=== PATIENT | male | born 1965 | race Caucasian/White ===

== ENCOUNTER 2017-07-19 10:30 | Inpatient (IN) | payer BC ==
--- NOTE | 2017-07-12 15:34 | HP ---
HISTORY AND PHYSICAL: DATE OF ADMISSION/SURGERY: 07/19/17. DATE OF OFFICE VISIT: 07/11/17 SURGEON: Bita Delatorre MD.* (DICTATED BY AFSHAN GARCIA) PROCEDURE: Right total hip arthroplasty. CHIEF COMPLAINT: Right hip pain. HISTORY OF PRESENT ILLNESS: Mr. Triana is a 52-year-old gentleman with complaints of right hip pain. He failed conservative management and elected to proceed with a right total hip arthroplasty, which is scheduled for 07/19/[address] Delatorre. PAST MEDICAL HISTORY: Hypertension. PAST SURGICAL HISTORY: Vasectomy. CURRENT MEDICATIONS: 1. Lisinopril/hydrochlorothiazide 20/12.5 mg every day. 2. Famotidine 40 mg every day. ALLERGIES: No known drug allergies. FAMILY HISTORY: An aortic aneurysm, hypertension, coronary artery disease, and colon cancer. SOCIAL HISTORY: This 52-year-old gentleman lives with his and 3 children. He does not smoke, use drug. Uses occasional alcohol. REVIEW OF SYSTEMS: A complete 14-point review of systems was reviewed with the patient, was all negative and noncontributory. PHYSICAL EXAMINATION GENERAL: He is well developed, well nourished, in no acute distress. VITAL SIGNS: He stands 6 feet 3 inches tall, weighs 285 pounds. Blood pressure 176/80, heart rate 64. HEENT: Normocephalic, atraumatic. NECK: Supple. No palpable lymph nodes. PULMONARY: The lungs are clear to auscultation bilaterally. CARDIO: Regular rate and rhythm. Strong S1, S2. ABDOMEN: Soft, nontender, nondistended. NEUROLOGIC: He is alert and oriented x3. Cranial nerves II through XII are intact. MUSCULOSKELETAL: Right lower extremity skin intact. There is no open wounds or abrasions. She walks with antalgic-type gait favoring his right hip. He has decreased internal and external rotation of the right hip. He has 2+ dorsalis pedis pulses. He has intact sensation. His lower extremity muscle groups strength are intact and 5/5. ASSESSMENT AND PLAN: Mr. Triana is a 52-year-old gentleman with endstage osteoarthritis of the right hip. He failed conservative management and has elected to proceed with right total hip arthroplasty. The surgery is schedule for 07/19/[address] Delatorre discussed the risks and benefits of surgery at today's visit and all of his questions were answered. He will follow with Dr. Delatorre in 2 weeks after the surgery. AFSHAN GARCIA [id number]/[facility] #: [id number] [facility]ALTH SYSTEMIrving
[~2017-07-19 10:30] MED LIST: Acetaminophen IV 1GM/100ML * 1,000 MG/100 ML VIAL IVPB ONE; Buffered Lidocaine 0.9% SYRIN* 5 ML/SYR SYRINGE INTRADERM ONE; Dexamethasone IV* 4 MG/ML 1 ML (4 MG) IV SLOW PU ONE; Famotidine IV* 10 MG/ML 2 ML (20 mg) IV ONE; Gabapentin CAP(*) 300 MG PO ONE; Ondansetron ODT TAB* 4 MG PO ONE; celeCOXIB CAP* 200 MG PO ONE
[2017-07-19] MEDS ORDERED: Famotidine IV* 10 MG/ML 2 ML (20 mg) ONE (10:40)
[2017-07-19] MEDS ORDERED: Dexamethasone IV* 4 MG/ML 1 ML (4 MG) ONE (10:40)
[2017-07-19] MEDS ORDERED: Gabapentin CAP(*) 300 MG ONE (10:41)
[2017-07-19] MEDS ORDERED: celeCOXIB CAP* 100 MG ONE (10:41)
[2017-07-19] MEDS ORDERED: Ondansetron ODT TAB* 4 MG ONE (10:41)
[2017-07-19] MEDS ORDERED: Buffered Lidocaine 0.9% SYRIN* 5 ML/SYR SYRINGE ONE (10:42)
[2017-07-19] MEDS ORDERED: ceFAZolin 2 GM PREMIX (*) 2 GM/50 ML BAG IVPB ONE (10:42)
[2017-07-19] MEDS ORDERED: ceFAZolin 1 GM in Dextrose (*) 1 GM/50 ML BAG IVPB ONE (10:42)
[2017-07-19] MEDS ORDERED: Propofol* 10 MG/ML 20 ML BTL IV PUSH ONE (11:10)
[2017-07-19] MEDS ORDERED: Lidocaine 2% PF * 5 ML VIAL ONE (11:13)
[2017-07-19] MEDS ORDERED: Bupivacaine 0.5% PF 10 ML VIAL INJ ONE (11:13)
[2017-07-19] MEDS ORDERED: Acetaminophen IV 1GM/100ML * 100 ML ONE (11:17)
[2017-07-19] MEDS ORDERED: ROPIVACAINE 5 MG/ML 30 ML BTL (0.5%) ONE (11:27)
[2017-07-19] MEDS ORDERED: fentaNYL* 50 MCG/ML 2 ML VIAL (100 MCG VIAL) ONE ×2 (11:29→16:05)
[2017-07-19] MEDS ORDERED: Midazolam* 1 MG/ML 5 ML VIAL (5 MG) ONE ×2 (11:29→12:54)
[2017-07-19] MEDS ORDERED: Ropivacaine (OR use only) 2 MG/ML 10 ML ONE (12:15)
[2017-07-19] MEDS ORDERED: Lidocaine 0.5%* 50 ML SDV ONE (13:06)
[2017-07-19] MEDS ORDERED: DiMENhydriNATE IV* 50 MG/ML VIAL IV PUSH PRN (13:47)
[2017-07-19] MEDS ORDERED: fentaNYL* 50 MCG/ML 2 ML VIAL (100 MCG VIAL) IV PRN (13:47)
[2017-07-19] MEDS ORDERED: Ondansetron INJ* 2 MG/ML VIAL IV PRN ×2 (13:47→15:38)
[2017-07-19] MEDS ORDERED: oxyCODONE TAB* 5 MG TAB PO PRN (13:47)
[2017-07-19] MEDS ORDERED: Naloxone* 0.4 MG/ML 1 ML VIAL IV PRN (13:47)
[2017-07-19] MEDS ORDERED: HYDROmorphone INJ* 1 MG/ML CARPUJECT SYRINGE IV PRN (13:47)
--- NOTE | 2017-07-19 14:46 | RAD ---
HISTORY: Right total hip replacement COMPARISONS: June 22, 2017 VIEWS: 1, portable intraoperative view of the right hip arthroplasty FINDINGS: A single portable intraoperative view of the right hip during arthroplasty demonstrates a right hip arthroplasty with a temporary femoral sizing component. IMPRESSION: LIMITED PORTABLE VIEW OF THE HIP DURING ARTHROPLASTY
[2017-07-19] MEDS ORDERED: Morphine VIAL* 4 MG/ML VIAL (1 ml vial) IV PRN (15:38)
[2017-07-19] MEDS ORDERED: Magnesium Hydroxide LIQ* 30 ML UDC PO PRN (15:38)
[2017-07-19] MEDS ORDERED: Cyclobenzaprine TAB* 10 MG PO PRN (15:38)
[2017-07-19] MEDS ORDERED: Polyethylene Glycol 3350* 17 GM PACKET PO PRN (15:38)
[2017-07-19] MEDS ORDERED: oxyCODONE/Acetamin 5/325 MG* TAB PO PRN (15:38)
[2017-07-19] MEDS ORDERED: Bisacodyl SUPP* 10 MG SUPP PR PRN (15:38)
[2017-07-19] MEDS ORDERED: diPHENhydraMINE IV* 50 MG/ML 1 ml VIAL (BENADRYL) IV PRN (15:38)
[2017-07-19] MEDS ORDERED: Acetaminophen TAB* 325 MG PO PRN (15:38)
--- NOTE | 2017-07-19 16:43 | RAD ---
INDICATION: Status post right total hip arthroplasty COMPARISON: Most recent comparison radiograph is dated June 22, 2017 TECHNIQUE: 3 views of the right hip were obtained. FINDINGS: The recently installed right hip prosthesis is anatomically aligned in the AP and lateral projections. The visualized bones are otherwise intact and appropriately aligned. IMPRESSION: Anatomic alignment of right hip prosthesis.
[2017-07-19] MEDS ORDERED: Warfarin TAB(*) 6 MG PO ONE (17:00)
[2017-07-19] MEDS: ceFAZolin 1 GM in Dextrose (*) 1 GM/50 ML BAG IVPB SCH ×2 (17:56→20:31)
[2017-07-19] MEDS ORDERED: Lisinopril/HCTZ 20/12.5(NF) TAB PO SCH (18:00)
[2017-07-19] MEDS: oxyCODONE/Acetamin 5/325 MG* TAB PO PRN ×2 (18:04→22:34)
[2017-07-19] MEDS: Famotidine TAB* 20 MG PO SCH (18:05)
[2017-07-19] MEDS: Hydrochlorothiazide TAB* 25 MG PO SCH (18:20)
[2017-07-19] MEDS: Lisinopril TAB* 10 MG PO SCH (18:20)
[2017-07-19] MEDS: Magnesium Hydroxide LIQ* 30 ML UDC PO SCH (20:12)
[2017-07-19] MEDS: oxyCODONE TAB* 5 MG TAB PO PRN (20:25)
[2017-07-19] MEDS: Docusate CAP* 100 MG PO SCH (20:25)
--- NOTE | 2017-07-20 00:55 | CONS ---
CONSULTATION REPORT: DATE OF CONSULT: 07/19/17 CONSULTING PROVIDER: Prakash Jeronimo MD. REFERRING ORTHOPEDIC SURGEON: Bita Delatorre MD. REASON FOR CONSULT: Medical management of hypertension in a right total hip arthroplasty patient. HISTORY OF PRESENT ILLNESS: Gary Triana is a 52-year-old male with past medical history of hypertension, hemorrhoids, diverticulosis, osteoarthritis, who is status post elective right total hip arthroplasty on 07/19/17. He is recovering in the PACU, complaining of a bee sting like pain to his right hip, otherwise without complaint. He does not exercise much secondary to his osteoarthritis. He has a history of iron-deficiency anemia back in 2007, status post EGD, colonoscopy and capsule study without clear source of bleeding other than his hemorrhoids, which occasionally do return. He is currently taking lisinopril 20 mg and hydrochlorothiazide 12.5 mg daily along with famotidine. Blood pressures have been in the 120s to 130s range when checked as an outpatient, although elevated to 170s this morning per report in the setting of his anxiety about the surgery. PAST MEDICAL HISTORY: Hypertension; diverticulosis; hemorrhoids; iron- deficiency anemia, resolved. PAST SURGICAL HISTORY: Vasectomy, now status post right total hip arthroplasty. CURRENT MEDICATIONS: 1. Lisinopril/hydrochlorothiazide 20/12.5 mg daily. 2. Famotidine 40 mg daily. ALLERGIES: No known drug allergies. FAMILY HISTORY: Father with hypertension, aortic aneurysm, at age 88. Mother with dementia and failure to thrive, at age 92. 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 Medical surrogate his is , Jessi. He is a full code. He is a never smoker, occasional 2 beers a week drinker. REVIEW OF SYSTEMS: A complete 14-point review of systems negative except as per HPI. PHYSICAL EXAM: General Appearance: No acute distress. Vital Signs: Temperature 97.3, heart rate 68, satting 100% on room air, respiratory rate 11 to 14, blood pressure 137/82, was as high as 170/95 at 10:30 a.m.. HEENT: Normocephalic, atraumatic. Pupils are equal, round, and reactive to light. Extraocular motions intact. No scleral icterus. No cervical lymphadenopathy. Mucous membranes moist. Pulmonary: Clear to auscultation anteriorly without wheezing, rales, or rhonchi. Cardiovascular: Regular rate and rhythm. No murmurs, rubs, or gallops. Abdomen: Soft, nontender, and nondistended. Extremities: Warm, well perfused. No peripheral edema. Right hip covered in bandage with no strikethrough. Ice pack. Neuro: Sensation intact. Oriented x4. DIAGNOSTIC STUDIES/LAB DATA: Labs from 07/02/17, hemoglobin 14.5, hematocrit 44 , platelets 186. Sodium 138, potassium 4.2, chloride 102, carbon dioxide 20, BUN 25, creatinine 1.13, glucose 94. INR 0.86. ASSESSMENT AND PLAN: Gary Triana is a 52-year-old male with past medical history of hypertension and osteoarthritis, now status post right total hip arthroplasty. For his hypertension, we will continue his lisinopril 20 mg daily and hydrochlorothiazide 12.5 mg daily. It is well controlled now. Pain management per Orthopedics. Physical therapy. DVT prophylaxis per Orthopedics and now Lovenox with transition to warfarin. We will continue his famotidine daily for his gastroesophageal reflux disease. Thank you for this interesting consult. [id number]/[facility] #: [id number] JENNA
[2017-07-20] MEDS: oxyCODONE TAB* 5 MG TAB PO PRN ×4 (00:56→17:03)
[2017-07-20] MEDS: oxyCODONE/Acetamin 5/325 MG* TAB PO PRN ×3 (03:00→14:26)
[2017-07-20] MEDS: ceFAZolin 1 GM in Dextrose (*) 1 GM/50 ML BAG IVPB SCH ×2 (05:02→12:22)
[2017-07-20 05:58] LABS: Hematocrit 36 % (42-52); Mean Platelet Volume 7.7 um3 (7.4-10.4); Platelet Count 186 10^3/ul (150-450)
[2017-07-20 06:04] LABS: INR 1.06 (0.77-1.02)
[2017-07-20 06:24] LABS: EGFR Non-African American 91.4 (>60)
--- NOTE | 2017-07-20 08:06 | PN ---
Progress Note - Progress Note Date of Service: 07/20/17 SOAP: Subjective: 52 y/o male s/p R MARYJANE by Dr. Delatorre 07/19/2017. Patient doing well, would like D/C today to home, no questions re: procedure. VSS, afebrile overnight. Objective: General- Well appearing, NAD, AO sitting in chair comfortably. MSK- RLE- DF/PF = b/l, PT 2+, negative homans sign Surgical dressing intact, no drainage/ induration/ erythema noted. SITLT. Vital Signs Temp 99.0 F 07/20/17 11:53 Pulse 110 07/20/17 11:53 Resp 16 07/20/17 12:22 BP 132/89 07/20/17 11:53 Pulse Ox 97 07/20/17 11:53 Intake & Output 07/19/17 07/20/17 07/20/17 18:59 06:59 18:59 Intake Total 2650 3550 733 Output Total 455 3775 750 Balance 2195 -225 -17 Weight 127.369 kg Intake: IV Fluids 2400 1000 373 ABX - CEFAZOLIN 52 CEFAZOLIN 3 GM 100 LR 2300 1000 321 IVPB 50 ABX - CEFAZOLIN 50 Oral 250 2500 360 Output: Urine 0 750 Varela 425 3775 Residual 30 Varela 16 Fr 30 Other: # Bowel Movements 0 Assessment: Stable 52 y/o male s/p R MARYJANE by Dr. Delatorre 07/19/2017. Plan: - DVT prophylaxis- lovenox. ASA 325mg PO BID for DVT prophylaxis at home. - Continue PT/ OT - Follow up with Dr. Delatorre within 10-14 days - H&H - Stable - post-op IV ABX - Running - HTN- cleared by hospitalists to resume home meds - D/C home today as cleared by PT. Acetaminophen (Tylenol Tab*) 650 mg PO Q4H PRN PRN Reason: PAIN OR TEMPERATURE Bisacodyl (Dulcolax Supp*) 10 mg TN DAILY PRN PRN Reason: constipation Cyclobenzaprine HCl (Flexeril Tab*) 10 mg PO TID PRN PRN Reason: SPASMS Docusate Sodium (Colace Cap*) 100 mg PO BID [facility] Last Admin: 07/20/17 08:47 Dose: 100 mg Enoxaparin Sodium (Lovenox(*)) 30 mg SUBCUT Q24H [facility] Last Admin: 07/20/17 12:23 Dose: 30 mg Famotidine (Pepcid Tab*) 40 mg PO QPM [facility] Last Admin: 07/19/17 18:05 Dose: 40 mg Hydrochlorothiazide (Hydrodiuril Tab*) 12.5 mg PO QPM [facility] Last Admin: 07/19/17 18:20 Dose: Not Given Lisinopril (Prinivil Tab*) 20 mg PO QPM [facility] Last Admin: 07/19/17 18:20 Dose: Not Given Magnesium Hydroxide (Milk Of Magnesia Liq*) 30 ml PO BID [facility] Last Admin: 07/20/17 08:47 Dose: 30 ml Magnesium Hydroxide (Milk Of Magnesia Liq*) 30 ml PO Q6H PRN PRN Reason: constipation Morphine Sulfate (Morphine Vial*) 2 mg IV Q2H PRN PRN Reason: PAIN Ondansetron HCl (Zofran Inj*) 4 mg IV Q6H PRN PRN Reason: nausea Oxycodone HCl (Roxycodone Tab*) 10 mg PO Q4H PRN PRN Reason: PAIN - SEVERE Last Admin: 07/20/17 12:22 Dose: 10 mg Oxycodone/Acetaminophen (Percocet 5/325 Tab*) 2 tab PO Q4H PRN PRN Reason: PAIN Last Admin: 07/20/17 08:47 Dose: 2 tab Oxycodone/Acetaminophen (Percocet 5/325 Tab*) 1 tab PO Q4H PRN PRN Reason: PAIN Pharmacy Profile Note (Coumadin Daily Reminder*) 0 note FOLLOW UP 1700 [facility] Polyethylene Glycol/Electrolytes (Miralax*) 17 gm PO DAILY PRN PRN Reason: Constipation Warfarin Sodium (Coumadin Tab(*)) 7.5 mg PO ONCE@1700 ONE PRN Reason: Protocol Stop: 07/20/17 17:01
[2017-07-20] MEDS: Magnesium Hydroxide LIQ* 30 ML UDC PO SCH (08:47)
[2017-07-20] MEDS: Docusate CAP* 100 MG PO SCH (08:47)
[2017-07-20] MEDS ORDERED: Enoxaparin(*) 30 MG/0.3 ML SYR SUBCUT SCH (12:00)
--- NOTE | 2017-07-20 13:37 | PN ---
Subjective Date of Service: 07/20/17 Interval History: HOSPITALIST PROGRESS NOTE Patient seen and examined at bedside. He feels well today. States he felt lightheaded last night when he tried to stand up too fast, but this resolved quickly. Did well with PT today, states his pain is well controlled. Family History: Unchanged from Admission Social History: Unchanged from Admission Past Medical History: Unchanged from Admission Objective Active Medications: Acetaminophen (Tylenol Tab*) 650 mg PO Q4H PRN PRN Reason: PAIN OR TEMPERATURE Bisacodyl (Dulcolax Supp*) 10 mg RI DAILY PRN PRN Reason: constipation Cyclobenzaprine HCl (Flexeril Tab*) 10 mg PO TID PRN PRN Reason: SPASMS Docusate Sodium (Colace Cap*) 100 mg PO BID [facility] Last Admin: 07/20/17 08:47 Dose: 100 mg Enoxaparin Sodium (Lovenox(*)) 30 mg SUBCUT Q24H [facility] Last Admin: 07/20/17 12:23 Dose: 30 mg Famotidine (Pepcid Tab*) 40 mg PO QPM [facility] Last Admin: 07/19/17 18:05 Dose: 40 mg Hydrochlorothiazide (Hydrodiuril Tab*) 12.5 mg PO QPM [facility] Last Admin: 07/19/17 18:20 Dose: Not Given Lactated Ringer's (Lactated Ringers 1000 Ml Bag*) 1,000 mls @ 100 mls/hr IV PER RATE [facility] Last Admin: 07/20/17 05:02 Dose: 100 mls/hr Lisinopril (Prinivil Tab*) 20 mg PO QPM [facility] Last Admin: 07/19/17 18:20 Dose: Not Given Magnesium Hydroxide (Milk Of Magnesia Liq*) 30 ml PO BID [facility] Last Admin: 07/20/17 08:47 Dose: 30 ml Magnesium Hydroxide (Milk Of Magnesia Liq*) 30 ml PO Q6H PRN PRN Reason: constipation Morphine Sulfate (Morphine Vial*) 2 mg IV Q2H PRN PRN Reason: PAIN Naloxone HCl (Narcan*) 0.08 mg IV Q2M PRN PRN Reason: severe induced resp depression Stop: 07/20/17 13:46 Ondansetron HCl (Zofran Inj*) 4 mg IV Q6H PRN PRN Reason: nausea Oxycodone HCl (Roxycodone Tab*) 10 mg PO Q4H PRN PRN Reason: PAIN - SEVERE Last Admin: 07/20/17 12:22 Dose: 10 mg Oxycodone/Acetaminophen (Percocet 5/325 Tab*) 2 tab PO Q4H PRN PRN Reason: PAIN Last Admin: 07/20/17 08:47 Dose: 2 tab Oxycodone/Acetaminophen (Percocet 5/325 Tab*) 1 tab PO Q4H PRN PRN Reason: PAIN Pharmacy Profile Note (Coumadin Daily Reminder*) 0 note FOLLOW UP 1700 [facility] Polyethylene Glycol/Electrolytes (Miralax*) 17 gm PO DAILY PRN PRN Reason: Constipation Warfarin Sodium (Coumadin Tab(*)) 7.5 mg PO ONCE@1700 ONE PRN Reason: Protocol Stop: 07/20/17 17:01 Vital Signs - 8 hr 07/20/17 07/20/17 07/20/17 07:18 08:40 08:47 Temperature 98.4 F Pulse Rate 79 Respiratory 14 16 16 Rate Blood Pressure 149/82 (mmHg) O2 Sat by Pulse 97 Oximetry Oxygen Devices in Use Now: None Appearance: Pleasant gentleman sitting up in a recliner in NAD. Eyes: No Scleral Icterus Ears/Nose/Mouth/Throat: Mucous Membranes Moist Neck: Trachea Midline Respiratory: Symmetrical Chest Expansion and Respiratory Effort, Clear to Auscultation Cardiovascular: RRR - Normal S1 and S2 Neurological: Alert and Oriented x 3, NL Muscle Strength and Tone Result Diagrams: 07/20/17 05:43 07/20/17 05:43 Assess/Plan/Problems-Billing Assessment: Mr. Traina is a 52yo M with PMH of obesity, HTN, who was admitted for elective right total hip arthroplasty. - Patient Problems (1) Hip osteoarthritis Comment: - s/p right total hip arhtoplasty on 07/19/[address] Delatorre. - Management as per Ortho. (2) HTN (hypertension) Comment: - Controlled, but trending up - will d/c IVF. - Continue Lisinopril and HCTZ. (3) DVT prophylaxis Comment: - Lovenox/Warfarin as per Ortho. (4) Full code status Status and Disposition: Hospitalist service will continue to follow with you.
[2017-07-20 16:02] VITALS: BP 153/79
[2017-07-20] MEDS ORDERED: Warfarin TAB(*) 7.5 MG PO ONE (17:00)
[2017-07-20] MEDS: Lisinopril TAB* 10 MG PO SCH (17:02)
[2017-07-20] MEDS: Hydrochlorothiazide TAB* 25 MG PO SCH (17:03)
[2017-07-20] MEDS: Famotidine TAB* 20 MG PO SCH (17:03)
--- NOTE | 2017-07-20 22:17 | OP ---
OPERATIVE REPORT: DATE OF OPERATION: 07/19/17 DATE OF : 61 ATTENDING SURGEON: Bita Delatorre MD THROAT CUTTER: AFSHAN Segovia Mr. Soler did help throughout the procedure with preparation of the leg, wound retraction, manipulation of the hip, and wound closure. ANESTHESIOLOGIST: Dr. Mcdonnell. ANESTHESIA: Spinal. PRE-OP DIAGNOSIS: Severe end-stage degenerative osteoarthritis of the right hip joint. POST-OP DIAGNOSIS: Severe end-stage degenerative osteoarthritis of the right hip joint. OPERATIVE PROCEDURE: Right total hip arthroplasty. HARDWARE USED: This is Liane uncemented total hip arthroplasty hardware. For the cup, a Tritanium 56E cluster hole shell, a single 20-mm cancellous bone screw was used. For the liner, a Trident X3 0-degree polyethylene insert 36E. For the stem, a size 6 Accolade TMZF with a 132-degree neck angle. For the head , a Biolox delta ceramic V40 femoral head, 36 -2.5. COMPLICATIONS: None. ESTIMATED BLOOD LOSS: 300 cc. SPECIMENS: Femoral head and acetabular reaming sent to Pathology. BRIEF HISTORY/INDICATION: Mr. Triana is a 52-year-old gentleman with 1 year of severe right hip pain. Radiographs showed [id number] arthritis with subchondral cyst formation. He failed conservative treatment with anti- inflammatories, physical therapy, and pain medications. Due to continued pain and decreased quality of life, he elected to undergo right total hip arthroplasty. Informed consent was obtained from the patient. He understood the risks of surgery included, but were not limited to bleeding, infection, damage to nearby structures, continued pain, need for further surgery, intraoperative fracture, nerve palsy, hardware failure or loosening, dislocation , leg length discrepancy, stroke, heart attack, blood clot, and . He wished to proceed. INTRAOPERATIVE FINDINGS: Intraoperatively, the patient was noted to have severe end-stage degeneration of the hip joint with complete loss of cartilage along the femoral head and acetabulum. He had extensive osteophyte formation around the acetabulum. DESCRIPTION OF PROCEDURE: Mr. Triana is a 52-year-old gentleman who was identified in the preanesthesia unit. His right lower extremity was marked as the correct operative side. Informed consent was signed and placed in the chart. The patient was taken to the operating room and placed under spinal anesthesia. A Varela catheter was placed. The patient was placed in the left lateral decubitus position on the peg board with all bony prominences well padded. Right lower extremity was prepped and draped in the usual sterile fashion. Preop time-out was made to correctly identify the patient's side and site. Appropriate perioperative antibiotics were given within 1 hour of incision. A posterior hip incision was made with a 10 blade and carried down to the lateral fascial layer. A new 10 blade was used to make an incision in the lateral fascia in line with the skin incision. A Charnley retractor was placed. The piriformis and conjoint tendons were identified and elevated off the posterolateral femur using electrocautery. These were tagged with #5 Ethibond. Next, the electrocautery was used to make a standard posterolateral capsular flap and this was also tagged with #5 Ethibond. The hip was carefully dislocated. Lesser troch to center of the femoral head measured 62 mm. The oscillating saw was used to make the appropriate femoral neck cut. Femoral head was removed. The femur was retracted anteriorly. After appropriate placement of retractors, the acetabulum was well visualized. A long-handled knife was used to sharply remove any remaining labrum from the acetabular rim. A significant amount of anterior osteophyte was noted and carefully removed with a bone osteotome. After appropriate placement of retractors, the acetabulum was easily visualized. The acetabulum was sequentially reamed up to a size 55. Bleeding subchondral bone bed was obtained. 55 trial had excellent fit. The final implant chosen was a Tritanium cluster hole shell 56E. This was impacted into the acetabulum without difficulty. Excellent stability was obtained. A single 20-mm screw was placed in the superior posterior quadrant for extra stability. There was appropriate anteversion and abduction angle on the cup. A Trident X3 0-degree 36E liner was chosen as the correct liner. This was impacted into the acetabulum without difficulty. Stability of the insert was checked and rechecked and noted to be stable. Attention was turned next to preparation of the proximal femur. A canal finder was used to enter the proximal femur. The femur was sequentially broached up to a size 6. Size 6 broach had excellent stability and appropriate anteversion. A 132-neck trial with a 36 +0 head trial was placed. Lesser troch to center of the femoral head measured 66 mm. Therefore, -2.5 trial was chosen and lesser troch to the center of the femoral head measured 53 mm. The hip was reduced and taken through a range of motion. The hip was stable in all positions. There was appropriate soft tissue tension and leg lengths. The hip was carefully dislocated. All trials were removed. Final implant chosen was an Accolade TMZF, size 6 with a 132-degree neck. This was impacted into the femoral canal without complications. There was excellent stability and appropriate anteversion. A Biolox delta ceramic V40 femoral head 36 -2.5 was chosen as the final head and this was impacted onto the femoral neck. Lesser troch to the center of the femoral head measured 63 mm. The hip was reduced and taken through a range of motion. The hip was stable in all positions. The wound was copiously irrigated with sterile saline. Previously tagged capsule and tendons were reapproximated to the posterolateral femur through 2 trochanteric drill holes. Lateral fascial layer was closed using interrupted #1 Vicryl. The rest of the incision was closed in a layered fashion using 0 and 2-0 Vicryl. The skin was closed using running 3-0 Monocryl suture. Dermabond was placed over this. Sterile Adaptic, 4x4s, and paper tape were used to cover the incision. The patient's anesthesia was reversed without difficulty. He was taken to the PACU in stable condition. Intended weightbearing will be weightbearing as tolerated. Intended DVT prophylaxis will be Lovenox in the hospital and aspirin to go home. [id number]/[facility] #: [id number] JENNA
--- NOTE | 2017-07-29 02:50 | DS ---
AMENDED REPORT NOW INCLUDES DESIGNATION COSIGNER - ESIGNED BEFORE ADJUSTMENT DISCHARGE SUMMARY: DATE OF ADMISSION: 07/19/17 DATE OF DISCHARGE: 07/20/17 ATTENDING PHYSICIAN: Dr. Bita Delatorre.* (DICTATED BY AFSHAN ORELLANA) CHIEF COMPLAINT: 1. Right hip pain. 2. Hypertension. DISCHARGE DIAGNOSES: 1. Status post right total hip arthroplasty. 2. Hypertension. PROCEDURE: Right total hip arthroplasty. CONSULTATIONS: 1. Physical therapy. 2. Occupational therapy. 3. Medicine consultation. BRIEF HISTORY: Mr. Triana is a pleasant 23-year-old gentleman with [id number] osteoarthritis with subchondral cyst formation in the right hip, who failed conservative treatment and elected to undergo a right total hip arthroplasty by Dr. Bita Delatorre on 07/19/17. HOSPITAL COURSE: Mr. Triana was admitted to [facility] on 07/19/17 where he underwent an uncomplicated right total hip arthroplasty with no complications with an estimated blood loss of 300 cc. The patient recovered in the postop surgical short stay unit. His Varela was removed on postoperative day #1 and he was voiding on his own without difficulty. The patient was advanced to a regular diet. He did have some episodes of nausea and abdominal pain, which was relieved after passing a bowel motion. Pain was controlled with p.o. Percocet and he advanced appropriately with physical therapy. He was deemed appropriate for discharge to go home on 07/20/17 with aspirin 325 mg b.i.d. for postoperative DVT prophylaxis and Lovenox while in-house. PHYSICAL EXAMINATION: General: Well-appearing, in no acute distress. Alert and oriented. Comfortable, sitting in the chair without difficulty. Musculoskeletal Exam: Right lower extremity showed dorsiflexion and plantarflexion equal bilaterally with posterior tibial pulses 2+ on the right side. Negative Homans sign on the right side. The surgical dressing was intact with no drainage, induration or erythema noted. Sensation is intact to light touch in the right lower extremity. Temperature 98.0, pulse of 110, respirations 16, blood pressure 132/89 with oxygen saturation 97% on room air. LABORATORY DATA: On date of discharge include an H and H of 12.0 and 36 with an INR of 0.16. DISCHARGE MEDICATIONS: 1. Percocet 5/325 one half to two tablets every 4 to 6 hours as needed for pain. 2. Acetaminophen 650 mg 1 tablet p.o. q. p.m. not to exceed more than 4000 mg a day. 3. Aspirin 325 mg p.o. b.i.d. for DVT prophylaxis x1 month. 4. Flexeril 10 mg p.o. t.i.d. p.r.n. for muscle spasms. 5. Colace 100 mg p.o. b.i.d. for constipation prevention. 6. Pepcid 40 mg p.o. q. p.m. 7. Lisinopril/hydrochlorothiazide 20/.5 one tablet p.o. q. p.m. CONDITION ON DISCHARGE: Stable. DISCHARGE INSTRUCTIONS: The patient will follow up with Dr. Delatorre in approximately 10 days for suture removal and incision check. He is to continue with physical therapy and occupational therapy and he will begin outpatient therapy for approximately 1 week, call for an appointment. For DVT prophylaxis , he will take aspirin 325 mg twice daily for one month. He will use Percocet as needed for pain control and Colace TID to prevent constipation. He will remain weightbearing as tolerated. He will go to the ER if he develops any shortness of breath or chest pain and call us if any increased drainage, redness or pain along the incision site. He will continue to be weightbearing as tolerated. AFSHAN ORELLANA [id number]/[facility] #: [id number] MTDD
== END 2017-07-20 17:35 | disposition home or self-care (01) | DRG 301 ==
LOC: AA 10:30 → SSU 17:52
PROVIDERS: ADMIT Orthopaedic Surgery Adult Reconstructive Orthopaedic Surgery; ATTEND Orthopaedic Surgery Adult Reconstructive Orthopaedic Surgery
PROC: 0SR904A Replacement of Right Hip Joint with Ceramic on Polyethylene Synthetic Substitute, Uncemented, Open Approach (ICD-10-PCS; principal; 2017-07-19 13:00)
DX: M16.11 Unilateral primary osteoarthritis, right hip (principal); I10 Essential (primary) hypertension; E78.1 Pure hyperglyceridemia; K21.9 Gastro-esophageal reflux disease without esophagitis; G89.29 Other chronic pain; K64.4 Residual hemorrhoidal skin tags; M54.5 Low back pain; E66.9 Obesity, unspecified; K57.90 Diverticulosis of intestine, part unspecified, without perforation or abscess without bleeding; M85.68 Other cyst of bone, other site; M25.751 Osteophyte, right hip; Z81.8 Family history of other mental and behavioral disorders; Z68.35 Body mass index [BMI] 35.0-35.9, adult; Z98.52 Vasectomy status; Z82.49 Family history of ischemic heart disease and other diseases of the circulatory system; Z80.0 Family history of malignant neoplasm of digestive organs; Z72.89 Other problems related to lifestyle
CPT/HCPCS: 36415; 80048; 85014; 85018; 85049; 85610; 88304; 88311; A9270-GY; C1713; C1776; G8987-GO-CJ; G8988-GO-CI; J0690; J1100; J1650; J2250; J2704; J2795; J3010